=== PATIENT | female | born 1960 | race Caucasian/White ===

== ENCOUNTER 2021-03-23 21:40 | Emergency (ER) | payer OTHER ==
[~2021-03-23] VITALS: Ht 157.5 cm; Wt 68.1 kg
[2021-03-23] MEDS ORDERED: ORPH100T PO (21:53)
[2021-03-23] MEDS ORDERED: IBUP80TA PO (21:53)
[2021-03-23] MEDS ORDERED: ACETAMINOPHEN 500 MG TAB PO ONE (23:20)
[2021-03-23] MEDS ORDERED: LIDOCAINE 5% (LIDODERM) PATCH TD ONE (23:20)
[2021-03-23] MEDS ORDERED: CYCLOBENZAPRINE 5MG TABLET PO ONE (23:20)
[2021-03-23] MEDS ORDERED: KETOROLAC 30 MG/ML 1ML VIAL IV ONE (23:55)
[2021-03-23 23:59] LABS: APPEARANCE, URINE HAZY (CLEAR); BACTERIA, URINE AUTO 1+ (NEGATIVE); BILIRUBIN, URINE AUTO NEGATIVE (NEGATIVE); BLOOD, URINE BLOOD NEGATIVE (NEGATIVE); COLOR, URINE YELLOW (YELLOW); GLUCOSE, URINE (UA) AUTO NEGATIVE (NEGATIVE); KETONE, URINE AUTO NEGATIVE (NEGATIVE); LEUKOCYTE ESTERASE, URINE AUTO 2+ (NEGATIVE); NITRITE, URINE AUTO NEGATIVE (NEGATIVE); PROTEIN, URINE AUTO NEGATIVE (NEGATIVE); RBC, URINE AUTO 4 /HPF (0-3); SQUAMOUS EPITHELIAL CELL UR AU 4 /HPF (0-6); UROBILINOGEN, URINE AUTO 0.2 mg/dL (0.0-2.0); WBC, URINE AUTO 8 /HPF (0-3)
[2021-03-24 00:08] LABS: BASO % 0.5 % (0.0-1.0); EOS # 0.4 10^3/uL (0.0-0.5); EOS % 4.4 % (0.0-3.0); HEMATOCRIT 43.5 % (36.0-47.0); LYMPH # 1.1 10^3/uL (1.5-5.0); LYMPH % 13.1 % (24.0-44.0); MEAN CORPUSCULAR HEMOGLOBIN 29.4 pg (27.0-33.0); MEAN CORPUSCULAR HGB CONC 32.2 g/dl (32.0-36.5); MEAN CORPUSCULAR VOLUME 91.4 fl (80.0-96.0); MONO # 0.4 10^3/uL (0.0-0.8); MONO % 5.4 % (2.0-8.0); NEUTROPHILS # 6.2 10^3/uL (1.5-8.5); NEUTROPHILS % 75.9 % (36.0-66.0); PLATELET COUNT, AUTOMATED 269 10^3/uL (150-450); RED BLOOD COUNT 4.76 10^6/uL (4.00-5.40); WHITE BLOOD COUNT 8.1 10^3/uL (4.0-10.0)
[2021-03-24 00:24] LABS: ALBUMIN 3.8 GM/DL (3.2-5.2); BILIRUBIN,DIRECT 0.1 MG/DL (0.0-0.2); BILIRUBIN,TOTAL 0.5 MG/DL (0.2-1.0); C REACTIVE PROTEIN QUANTITATIV 0.35 MG/DL (0.00-0.30); TOTAL PROTEIN 7.2 GM/DL (6.4-8.2)
[2021-03-24 00:32] LABS: ERYTHROCYTE SEDIMENTATION RATE 8 mm/hr (0-30)
[2021-03-24] MEDS ORDERED: MORPHINE 4 MG/ML 1ML VIAL/SYRINGE (J2270) IV ONE (01:10)
[2021-03-24] MEDS ORDERED: ONDANSETRON 4MG/2ML VIAL IV ONE (01:10)
[2021-03-24 02:10] VITALS: BP 135/61
--- NOTE | 2021-03-24 02:13 | REPVR ---
PROCEDURE INFORMATION: Exam: CTA Chest With Contrast Exam date and time: 03/24/2021 12:33 AM Age: 60 years old Clinical indication: Pain; Other: Back; Additional info: R posterior chest wall pain, elevated dimer, R/O pe TECHNIQUE: Imaging protocol: Computed tomographic angiography of the chest with contrast. 3D rendering (Not supervised by radiologist): MIP and/or 3D reconstructed images were created by the technologist. Radiation optimization: All CT scans at this facility use at least one of these dose optimization techniques: automated exposure control; mA and/or kV adjustment per patient size (includes targeted exams where dose is matched to clinical indication); or iterative reconstruction. Contrast material: ISO; Contrast volume: 100 ml; Contrast route: INTRA-ARTERIAL (ARTERIAL); COMPARISON: No relevant prior studies available. FINDINGS: PULMONARY ARTERIES: Diameter of the main pulmonary trunk at 2.5 cm is within normal range. Enhancement within the pulmonary arteries is preserved bilaterally through the distal segmental levels, without evidence for acute pulmonary embolus. HEART AND AORTA: Cardiac size is at the upper end of normal. No pericardial effusion. No thoracic aortic aneurysm or dissection. Mild appearing atherosclerotic disease is noted. Visualized proximal great vessels within the superior mediastinum demonstrate atherosclerotic disease but are patent. MEDIASTINUM: No mediastinal gas. The visualized thyroid gland is homogeneous. No mediastinal hematoma. Trace amount of fluid seen within the pericardial recesses. Small mediastinal and hilar lymph nodes are noted but not obviously pathologic by size criteria. No hiatal hernia or periesophageal inflammatory changes. LUNGS: The lungs are symmetrically expanded. Mildly confluent bibasal pulmonary opacities noted, likely secondary to atelectasis. A few scattered reticular opacities are seen which may be secondary to atelectasis and/or parenchymal scarring. No pneumothorax or pleural effusion. No suspicious pulmonary parenchymal mass. No bronchiectasis or peribronchial thickening is seen. UPPER ABDOMEN: Please refer to same-day CT abdomen report for complete findings. MSK AND BODY WALL: There is moderately severe central vertebral body compression fracture deformity at T6. There is mild concavity along the superior endplates of T3 and T4 likely related to mild compression. There is mild superior endplate compression deformity at T12. These are of indeterminate acuity. Clinical correlation is advised. MRI for further characterization as clinically appropriate. IMPRESSION: No evidence for acute pulmonary embolus. Cardiac size is at the upper end of normal. Atelectasis and/or pulmonary parenchymal scarring noted. Vertebral compression deformities of indeterminate acuity. Findings discussed above in detail. Electronically signed by: Kj Christopher On 03/24/2021 02:13:10 AM
--- NOTE | 2021-03-24 02:24 | REPVR ---
PROCEDURE INFORMATION: Exam: CT Abdomen And Pelvis With Contrast Exam date and time: 03/24/2021 12:33 AM Age: 60 years old Clinical indication: Abdominal pain; Flank; Right; Additional info: R flank pain, R cvat TECHNIQUE: Imaging protocol: Computed tomography of the abdomen and pelvis with contrast. Radiation optimization: All CT scans at this facility use at least one of these dose optimization techniques: automated exposure control; mA and/or kV adjustment per patient size (includes targeted exams where dose is matched to clinical indication); or iterative reconstruction. Contrast material: ISO; Contrast volume: 100 ml; Contrast route: INTRAVENOUS (IV); COMPARISON: No relevant prior studies available. FINDINGS: LUNG BASES: Please refer to same-day chest CT report for complete findings. VASCULAR: No abdominoaortic aneurysm, dissection, or retroperitoneal hematoma. There is calcified and noncalcified aortoiliac and femoral atherosclerosis. PERITONEAL : No free air or free fluid. GI: No hiatal hernia. The stomach is not sufficiently distended to evaluate wall thickening or for complete diagnostic evaluation by this exam. Non-specific fluid-filled loops of small bowel are seen within the abdomen and pelvis. No appearance of a small-bowel obstruction. No focal mesenteric inflammation. No mesenteric lymphadenopathy by size criteria. Scattered fecal material and gas within portions of the colon. There is diverticulosis but no evidence of acute diverticulitis. The appendix does not appear inflamed. HEPATOBILIARY, PANCREAS, SPLEEN: Hepatic length is 18.3 cm. 3 mm hypodense lesion noted within the left hepatic lobe, too small to further characterize but likely a cyst. The gallbladder has been removed. No significant biliary dilation. No pancreatic inflammation. Spleen not enlarged. ADRENALS, KIDNEYS, BLADDER, RETROPERITONEAL: Slight prominence of the adrenal glands may be secondary to mild hyperplasia or underlying adenomatous change. Symmetric renal enhancement. No perinephric stranding or fluid. Given the patient's symptoms, correlation with hematuria and urinalysis is also advised. No hydronephrosis. No bladder wall thickening. The urinary bladder is mildly distended. No perivesical stranding. Small nonspecific retroperitoneal lymph nodes. PELVIC: No dominant cystic pelvic mass seen. Anteverted uterus. Gas within the vagina may be iatrogenic. MUSCULOSKELETAL: Degenerative change at the lower lumbar spine. Mild degenerative changes of the sacroiliac joints. IMPRESSION: No free-air, free-fluid or focal mesenteric inflammation. Nonspecific gastrointestinal findings as discussed above. Other incidental findings discussed above. Electronically signed by: Kj Christopher On 03/24/2021 02:24:31 AM
[2021-03-24] MEDS ORDERED: CYCL5TAB PO (02:42)
[2021-03-24] MEDS ORDERED: LIDO5DIS41 TOP (02:42)
[2021-03-24] MEDS ORDERED: NITR1CAP11 PO (02:42)
[2021-03-24] MEDS ORDERED: NITROFURANTOIN (MACROBID) 100 MG CAP PO ONE (02:50)
[2021-03-24] MEDS ORDERED: HYDR-3713 PO (02:56)
--- NOTE | 2021-03-24 07:45 | ED PDOC ---
Post-Departure Follow-Up radiology report faxed to Germán Malcolm Sarah MD Mar 24, 2021 07:45
[2021-03-24] MEDS ORDERED: **NOTE PATIENT COMMENT** MISC XX SCH (21:00)
== END 2021-03-24 03:20 | disposition home or self-care (01) ==
LOC: M ED 21:40
DX: N39.0 Urinary tract infection, site not specified (principal); J98.11 Atelectasis; S22.059A Unspecified fracture of T5-T6 vertebra, initial encounter for closed fracture; X58.XXXA Exposure to other specified factors, initial encounter; Y92.89 Other specified places as the place of occurrence of the external cause
CPT/HCPCS: 71275; 74177; 80047; 80076; 81001; 83690; 85025; 85379; 85652; 86140; 87086; 96374; 96375; 99284; J1885; J2270; J2405